=== PATIENT | female | born 1975 | race Caucasian/White ===

== ENCOUNTER → 2023-09-26 06:36 | Day surgery (SDC) | payer OTHER, SELFPAY ==
[2023-09-26 14:22] VITALS: BP 158/91
[2023-09-26 14:27] VITALS: BMI 45.7
[2023-09-26 14:28] VITALS: BMI 45.7
[2023-09-26 16:23] VITALS: BP 160/107
[2023-09-26 16:31] VITALS: BP 147/98
[2023-09-26 17:00] VITALS: BP 155/98
== END ==
LOC: GI 06:36
PROVIDERS: ATTENDING PHYSICIAN Internal Medicine Gastroenterology
DX: Z12.11 Encounter for screening for malignant neoplasm of colon (principal); D12.5 Benign neoplasm of sigmoid colon; K63.5 Polyp of colon; K57.30 Diverticulosis of large intestine without perforation or abscess without bleeding
CPT/HCPCS: 45385; 45380; 88305

== ENCOUNTER → 2025-04-07 10:20 | Outpatient (REF) | payer OTHER, SELFPAY | LOC: HWRAD 10:20 | PROVIDERS: ATTENDING PHYSICIAN Obstetrics & Gynecology Gynecology; FAMILY PHYSICIAN Family Medicine | DX: N93.9 Abnormal uterine and vaginal bleeding, unspecified (principal) | CPT/HCPCS: 76830; 76856 ==

== ENCOUNTER → 2025-05-13 09:18 | Outpatient (REF) | payer OTHER, SELFPAY ==
[2025-05-13 10:03] LABS: Hematocrit 42.9 % (37.0-47.0); Hemoglobin 14.0 g/dL (12.0-16.0); Mean Corp Hgb Conc. 32.6 g/dL (33.0-37.0); Mean Corpuscular Volume 86.1 fL (81.0-99.0); Nucleated Red Blood Cells % 0 %; Platelet Count 237 10^3/uL (130-400); Red Cell Dist. Width 13.2 % (11.5-14.5)
[2025-05-13 11:17] LABS: HCG, Serum Qualitative Screen Negative
[2025-05-13 11:48] LABS: ALT (SGPT) 29 U/L (0-35); AST (SGOT) 25 U/L (14-36); Albumin 4.6 g/dl (3.5-5.0); Alkaline Phosphatase 103 U/L (38-126); Calcium 9.6 mg/dl (8.4-10.2); Carbon Dioxide 28 mmol/L (22-30); Chloride 103 mmol/L (98-107); Glucose 98 mg/dl (70-99); Potassium 4.7 mmol/L (3.5-5.1); Sodium 138 mmol/L (135-145); Total Protein 7.8 g/dl (6.3-8.2); eGFR > 60.00
[2025-05-13 12:30] LABS: Blood Urea Nitrogen 16 mg/dl (7-17)
== END ==
LOC: REG 09:18
PROVIDERS: ATTENDING PHYSICIAN Obstetrics & Gynecology Gynecology; FAMILY PHYSICIAN Nurse Practitioner Adult Health
DX: N92.4 Excessive bleeding in the premenopausal period (principal); N93.9 Abnormal uterine and vaginal bleeding, unspecified; Z01.818 Encounter for other preprocedural examination
CPT/HCPCS: 36415; 80053; 84703; 85025; 93005

== ENCOUNTER 2025-05-21 06:02 | Day surgery (SDC) | payer OTHER, SELFPAY ==
[2025-05-21] VITALS (9 sets, daily range): BP systolic 130–145; BP diastolic 80–94; BMI 49.0
[2025-05-21] MEDS: NORMOSOL-R/PLASMALYTE-A 1000 IV (07:08)
== END 2025-05-21 10:26 | disposition home or self-care (01) ==
LOC: SDS 06:02
PROVIDERS: ATTENDING PHYSICIAN Obstetrics & Gynecology Gynecology; FAMILY PHYSICIAN Nurse Practitioner Adult Health
DX: N93.9 Abnormal uterine and vaginal bleeding, unspecified (principal)
CPT/HCPCS: 58558; 88305